=== PATIENT | female | born 1990 | race Caucasian/White ===

== ENCOUNTER 2017-10-30 03:20 | Emergency (ER) | END 2017-10-30 07:23 | disposition home or self-care (01) ==

== ENCOUNTER 2018-10-04 09:29 | Emergency (ER) | payer MEDICAID, OTHER ==
[~2018-10-04] VITALS: Ht 175.3 cm; Wt 71.0 kg
[~2018-10-04 09:29] MED LIST: D-ME473S2 PO; IBUP-1542 PO; LEVO750T25 PO
[2018-10-04 09:33] VITALS: BP 120/67; PULSE 94; RESP 20; Ht 175.3 cm; Wt 71.0 kg
--- NOTE | 2018-10-04 11:02 | ERD ---
ER Documentation Chief Complaint Chief Complaint Complains of left lower abdominal pain Hx of pelvic pain and cysts HPI Contrary of what it says in the chief complaint, this is a 27-year-old female, who presents to the emergency department, complaining of 1 day with worsening of perianal pain, erythema, warmth and tenderness. The patient has a history of a perianal abscess drained 1 year ago, according to the patient, the symptoms are consistent with a new abscess. She denies fevers, no chills, no urinary symptoms, she denies pelvic pain, no abdominal pain, no history of ovarian cyst. ROS All systems reviewed and are negative except as per history of present illness. Medications Home Meds Active Scripts Ibuprofen* (Motrin*) 600 Mg Tab, 600 MG PO Q8, #15 TAB Prov:CRISTIAN KHAN MD 10/04/18 Cephalexin* (Keflex*) 500 Mg Capsule, 500 MG PO BID for 7 Days, #14 CAP Prov:CRISTIAN KHAN MD 10/04/18 Sulfamethoxazole/Trimethoprim* (Bactrim Ds* Tablet) 1 Each Tablet, 1 TAB PO BID, #14 TAB Prov:CRISTIAN KHAN MD 10/04/18 Hydrocodone/Acetaminophen (Sunset 5-325 Tablet) 1 Each Tablet, 1 TAB PO Q6H PRN for PAIN, #7 TAB Prov:CRISTIAN KHAN MD 10/04/18 Ibuprofen* (Motrin*) 600 Mg Tab, 600 MG PO Q6H PRN for PAIN, #120 TAB Prov:MERCEDES CARRERA MD 10/30/17 Dextromethorphan Hb-Promethazine Hcl* (Promethazine DM* Syrup) 473 Ml Syrup, 10 ML PO Q6 PRN for COUGH, #120 ML Prov:MERCEDES CARRERA MD 10/30/17 Levofloxacin* (Levaquin*) 750 Mg Tablet, 750 MG PO DAILY for 5 Days, TAB Prov:MERCEDES CARRERA MD 10/30/17 Allergies Allergies: Coded Allergies: No Known Allergy (Unverified , 10/30/17) PMhx/Soc History of Surgery: No Anesthesia Reaction: No Hx Neurological Disorder: No Hx Respiratory Disorders: No Hx Cardiac Disorders: No Hx Psychiatric Problems: No Hx Miscellaneous Medical Probl: No Hx Alcohol Use: Yes (SOCIAL ) Hx Substance Use: No Hx Tobacco Use: Yes (HALF A PACK A MONTH) FmHx Family History: No diabetes, No coronary disease Physical Exam Vitals Vital Signs Date Temp Pulse Resp B/P (MAP) Pulse Ox O2 O2 Flow FiO2 Time Delivery Rate 10/04/18 99.6 12:21 10/04/18 100.6 94 20 120/67 96 09:33 (84) Physical Exam Const: No acute distress Head: Atraumatic Eyes: Normal Conjunctiva ENT: Normal External Ears, Nose and Mouth. Neck: Full range of motion. No meningismus. Resp: Clear to auscultation bilaterally Cardio: Regular rate and rhythm, no murmurs Abd: Soft, non tender, non distended. Normal bowel sounds Skin: Right perianal area with induration, tenderness warm to palpation. Back: No midline or flank tenderness Ext: No cyanosis, or edema Neur: Awake and alert Psych: Normal Mood and Affect Results 24 hrs Current Medications Medications Dose Sig/Kvng Start Time Status Last (Trade) Ordered Route PRN Stop Time Admin Dose Reason Admin Lidocaine/ 30 ml ONCE STAT 10/04/18 DC Epinephrine INJ 11:46 (Xylocaine 10/04/18 11:47 1%/ Epi (Pf)) Lidocaine/ 30 ml ONCE STAT 10/04/18 DC Epinephrine INJ 11:59 (Xylocaine 10/04/18 12:01 1%/ Epi (Mdv) 20 ml) Procedures/MDM Vital signs stable. Differential diagnosis considered include but not limited to: Cellulitis, abscess, lipoma, neoplasm. Low suspicion for acute systemic infection. Physical examination and clinical presentation consistent most likely with right perianal abscess. During the ED course the patient remained stable, no new complaints. The patient received treatment with incision and drainage of the area presenting overall improvement of the symptoms. Incision and drainage: Informed consent obtained, risk and benefits discussed with patient. Indication: Perianal abscess Location: Right side Area cleaned and sterilized with chlorhexidine solution, 2 mL of lidocaine without epi was infiltrated in the area of the incision. 5 mm incision was made with 11 blade scalpel abscess was drained with breaking up loculation with a hem ostat. The patient tolerated well the procedure without complications. Results and clinical impression discussed with the patient who agrees with management. The patient is stable to be treated outpatient and will be discharged home, some side effects of prescribed medications (headache, rash, nausea, vomiting, diarrhea, drowsiness, habituation, bleeding, hypertension, interactions with other medications) were reviewed. The patient was instructed to follow up with the primary care provider in the next 48h. If symptoms persist, worsen or new symptoms develop, then patient should return to the ED immediately. Instructions explained and given directly by me to the patient [in Welsh] with acknowledgment and demonstrated understanding. Disclaimer: Inadvertent spelling and grammatical errors are likely due to EHR/dictation software use and do not reflect on the overall quality of patient care. Also, please note that the electronic time recorded on this note does not necessarily reflect the actual time of the patient encounter. Departure Diagnosis: Primary Impression: Perianal abscess Condition: Stable Additional Instructions: Thank you very much for allowing us to participate in your care. Your health and safety is our top priority at [facility]. Call your primary care doctor TOMORROW for an appointment during the next 2-4 days and bring all the information and medications prescribed. Have prescriptions filled and follow precisely the directions on the label. If the symptoms get worse and your provider is unavailable, return to the Emergency Department immediately. CRISTIAN KHAN MD Oct 04, 2018 11:02
[2018-10-04] MEDS ORDERED: LIDOCAINE 1%/EPI 30 ML INJ INJ STA (11:46)
[2018-10-04] MEDS ORDERED: LIDOCAINE 1%/EPI (1:100,000) (MDV) 20 ML INJ STA (11:59)
[2018-10-04] MEDS ORDERED: IBUP-1542 PO (12:10)
[2018-10-04] MEDS ORDERED: HYDR-4011 PO (12:10)
[2018-10-04] MEDS ORDERED: CEPH-443 PO (12:10)
[2018-10-04] MEDS ORDERED: SULF1TAB31 PO (12:10)
== END 2018-10-04 12:21 | disposition home or self-care (01) ==
LOC: FTE 09:29
DX: K61.0 Anal abscess (principal); R10.2 Pelvic and perineal pain; Z87.891 Personal history of nicotine dependence
CPT/HCPCS: 46050; Z7502; Z7610

== ENCOUNTER 2019-05-02 11:41 | Emergency (ER) | payer OTHER ==
[~2019-05-02] VITALS: Ht 165.1 cm; Wt 76.5 kg
[~2019-05-02 11:41] MED LIST changes: +AMOX1TAB10 PO; +AZIT250T PO; +CEPH-443 PO; +HYDR-4011 PO; +SULF1TAB31 PO
[2019-05-02 11:44] VITALS: Ht 165.1 cm; Wt 76.5 kg
[2019-05-02] MEDS ORDERED: ONDANSETRON (ODT) 4 MG TAB ODT STA (13:18)
[2019-05-02] MEDS ORDERED: IBUPROFEN 600 MG TAB PO ONE (13:30)
[2019-05-02] MEDS ORDERED: SOD CHLORIDE 0.9% 100 ML ONE (15:12)
[2019-05-02] MEDS ORDERED: IOHEXOL 300MG/ML 150 ML BTL ONE (15:12)
[2019-05-02 17:12] VITALS: BP 115/78; PULSE 82; RESP 18
== END 2019-05-02 17:14 | disposition home or self-care (01) ==
LOC: FTE 11:41
DX: J18.9 Pneumonia, unspecified organism (principal); H66.92 Otitis media, unspecified, left ear
CPT/HCPCS: 71045; 71260; 80048; 81025; 85025; 93005; Q9967; Z7502; Z7610